=== PATIENT | male | born 1970 | race Caucasian/White ===

== ENCOUNTER 2020-05-23 15:14 | Inpatient (IN) | payer OTHER ==
[2020-05-23 16:12] VITALS: BMI 24.1
[2020-05-23] MEDS ORDERED: MAG HYDROX/AL HYDROX/SIMETH 30 ML UNIT-DOSE CUP PO PRN (19:35)
[2020-05-23] MEDS ORDERED: MAGNESIUM CITRATE 300 ML BOTTLE PO PRN (19:35)
[2020-05-23] MEDS ORDERED: diazePAM 5 MG TABLET PO PRN (19:35)
[2020-05-23] MEDS ORDERED: NICOTINE POLACRILEX 2 MG GUM BUC PRN (19:35)
[2020-05-23] MEDS ORDERED: ACETAMINOPHEN 325 MG TABLET (FP) PO PRN ×2 (19:35)
[2020-05-23] MEDS ORDERED: MENTHOL/PHENOL 1 EACH UD MM PRN (19:35)
[2020-05-23] MEDS ORDERED: ONDANSETRON *ODT* 4 MG TABLET SL PRN (19:35)
[2020-05-23] MEDS ORDERED: BISMUTH SUBSALICYLATE 524 MG/30 ML UD PO PRN (19:35)
[2020-05-23] MEDS ORDERED: METHADONE HCL 10 MG TABLET (FOR DETOX USE ONLY) PO ONE (19:35)
[2020-05-23] MEDS ORDERED: MAGNESIUM HYDROX 2400MG/30ML ORAL SUSPENSION 30 ML CUP PO PRN (19:35)
[2020-05-23] MEDS ORDERED: cloNIDine HCL 0.1 MG TABLET PO PRN (19:35)
[2020-05-23] MEDS ORDERED: IBUPROFEN 400 MG TABLET (FP) PO PRN (19:35)
[2020-05-23] MEDS ORDERED: METHOCARBAMOL 500 MG TABLET PO PRN (19:35)
[2020-05-23] MEDS ORDERED: ALBUTEROL SO4 HFA INHALER IH PRN (19:40)
[2020-05-23] MEDS: THIAMINE HCL 100 MG TABLET (FP) PO SCH (23:09)
[2020-05-23] MEDS: diazePAM 5 MG TABLET PO SCH (23:12)
[2020-05-23] MEDS: MELATONIN 5 MG TABLETS PO SCH (23:13)
[2020-05-23] MEDS: NICOTINE 21 MG/24 HOURS TOPICAL PATCH TD SCH (23:13)
[2020-05-23] MEDS: hydrOXYzine PAMOATE 25 MG CAPSULE (FP) PO SCH (23:13)
[2020-05-24] MEDS: hydrOXYzine PAMOATE 25 MG CAPSULE (FP) PO SCH ×5 (06:12→22:20)
[2020-05-24] MEDS: diazePAM 5 MG TABLET PO SCH ×4 (06:13→22:19)
[2020-05-24] MEDS ORDERED: METHADONE HCL 5 MG TABLET (FOR DETOX USE ONLY) ONE (08:38)
[2020-05-24] MEDS ORDERED: METHADONE HCL 10 MG TABLET (FOR DETOX USE ONLY) ONE (08:38)
[2020-05-24] MEDS ORDERED: METHADONE (DETOX) 20 MG, METHADONE (DETOX) 5 MG PO ONE (10:00)
[2020-05-24 10:17] LABS: HEMOGLOBIN 11.7 GM/dL (11.7-16.9); MCH 35.1 pg (25.7-33.7); MCHC 34.4 g/dl (32.0-35.9); MEAN PLT VOLUME 8.6 fl (7.5-11.1); PLATELET COUNT 254 K/MM3 (134-434); RBC 3.33 M/mm3 (4.00-5.60); RDW 13.6 % (11.9-15.9)
[2020-05-24 10:23] LABS: ALBUMIN 3.3 g/dl (3.4-5.0); CALCIUM 8.8 mg/dL (8.5-10.1)
[2020-05-24 10:24] LABS: BLOOD UREA NITROGEN 11.8 mg/dL (7-18)
[2020-05-24 10:27] LABS: CREATININE 0.7 mg/dL (0.55-1.3)
[2020-05-24 10:28] LABS: BILIRUBIN,TOTAL 0.7 mg/dL (0.2-1); TOT PROT 6.2 g/dl (6.4-8.2)
[2020-05-24] MEDS: NICOTINE 21 MG/24 HOURS TOPICAL PATCH TD SCH (10:37)
[2020-05-24] MEDS: PRENATAL VITAMINS W/ FOLIC ACID TABLET (FP) PO SCH (10:37)
[2020-05-24 22:03] LABS: PH,URINE 7.5 (5.0-8.0); URINE APPEARANCE CLOUDY; URINE BILIRUBIN NEGATIVE (NEGATIVE); URINE COLOR YELLOW; URINE GLUCOSE (UA) NEGATIVE (NEGATIVE); URINE KETONE NEGATIVE (NEGATIVE); URINE LEUK ESTERASE NEGATIVE (NEGATIVE); URINE NITRITE NEGATIVE (NEGATIVE); URINE PROTEIN NEGATIVE (NEGATIVE)
[2020-05-24] MEDS: MELATONIN 5 MG TABLETS PO SCH (22:19)
[2020-05-24] MEDS: THIAMINE HCL 100 MG TABLET (FP) PO SCH (22:20)
[2020-05-25] MEDS: diazePAM 5 MG TABLET PO SCH ×3 (05:59→22:42)
[2020-05-25] MEDS: hydrOXYzine PAMOATE 25 MG CAPSULE (FP) PO SCH ×5 (05:59→22:44)
[2020-05-25] MEDS: PRENATAL VITAMINS W/ FOLIC ACID TABLET (FP) PO SCH (09:53)
[2020-05-25] MEDS: NICOTINE 21 MG/24 HOURS TOPICAL PATCH TD SCH (09:53)
[2020-05-25] MEDS ORDERED: METHADONE HCL 10 MG TABLET (FOR DETOX USE ONLY) PO ONE (10:00)
[2020-05-25] MEDS ORDERED: MASKS NR ONE (17:59)
[2020-05-25] MEDS: THIAMINE HCL 100 MG TABLET (FP) PO SCH (22:42)
[2020-05-25] MEDS: MELATONIN 5 MG TABLETS PO PRN (22:43)
[2020-05-26] MEDS: diazePAM 5 MG TABLET PO SCH ×2 (05:53→18:02)
[2020-05-26] MEDS: hydrOXYzine PAMOATE 25 MG CAPSULE (FP) PO SCH ×5 (05:54→22:38)
[2020-05-26 08:06] LABS: SARS-CoV-2 NAA Not Detected (Not Detected)
[2020-05-26] MEDS ORDERED: METHADONE HCL 5 MG TABLET (FOR DETOX USE ONLY) ONE (09:16)
[2020-05-26] MEDS ORDERED: METHADONE HCL 10 MG TABLET (FOR DETOX USE ONLY) ONE (09:17)
[2020-05-26] MEDS ORDERED: METHADONE (DETOX) 10 MG, METHADONE (DETOX) 5 MG PO ONE (10:00)
[2020-05-26] MEDS: NICOTINE 21 MG/24 HOURS TOPICAL PATCH TD SCH (10:05)
[2020-05-26] MEDS: PRENATAL VITAMINS W/ FOLIC ACID TABLET (FP) PO SCH (10:05)
[2020-05-26] MEDS: THIAMINE HCL 100 MG TABLET (FP) PO SCH (22:38)
[2020-05-26] MEDS: MELATONIN 5 MG TABLETS PO PRN (22:38)
[2020-05-27] MEDS: hydrOXYzine PAMOATE 25 MG CAPSULE (FP) PO SCH ×5 (05:00→22:37)
[2020-05-27] MEDS ORDERED: diazePAM 5 MG TABLET PO ONE (06:00)
[2020-05-27] MEDS ORDERED: METHADONE HCL 10 MG TABLET (FOR DETOX USE ONLY) PO ONE (10:00)
[2020-05-27] MEDS: PRENATAL VITAMINS W/ FOLIC ACID TABLET (FP) PO SCH (10:08)
[2020-05-27] MEDS: NICOTINE 21 MG/24 HOURS TOPICAL PATCH TD SCH (10:08)
[2020-05-27] MEDS: THIAMINE HCL 100 MG TABLET (FP) PO SCH (22:37)
[2020-05-28] MEDS ORDERED: METHADONE HCL 5 MG TABLET (FOR DETOX USE ONLY) PO ONE ×2 (06:00→09:15)
[2020-05-28] MEDS: hydrOXYzine PAMOATE 25 MG CAPSULE (FP) PO SCH (06:35)
[2020-05-28 09:06] VITALS: BP 138/73; PULSE 91; TEMP 97.7
== END 2020-05-28 10:00 | disposition home or self-care (01) | DRG 773 ==
LOC: YASAS 15:14 → Y6N 20:42
PROVIDERS: ADMIT Allergy & Immunology; ATTEND Allergy & Immunology
PROC: HZ2ZZZZ Detoxification Services for Substance Abuse Treatment (ICD-10-PCS; principal; 2020-05-23)
DX: F11.23 Opioid dependence with withdrawal (principal); F10.230 Alcohol dependence with withdrawal, uncomplicated; F12.20 Cannabis dependence, uncomplicated; F17.210 Nicotine dependence, cigarettes, uncomplicated; F19.282 Other psychoactive substance dependence with psychoactive substance-induced sleep disorder; F19.280 Other psychoactive substance dependence with psychoactive substance-induced anxiety disorder; F19.24 Other psychoactive substance dependence with psychoactive substance-induced mood disorder; F31.9 Bipolar disorder, unspecified; D64.9 Anemia, unspecified; J45.20 Mild intermittent asthma, uncomplicated; R63.4 Abnormal weight loss; Z68.24 Body mass index [BMI] 24.0-24.9, adult
CPT/HCPCS: 36415; 80053; 81003; 85027; 86780; 93005; 93010; C9803; U0003; U0005